=== PATIENT | male | born 1940 | race Caucasian/White ===

== ENCOUNTER 2018-02-09 17:56 | Emergency (ER) | payer MEDICARE, OTHER ==
[2018-02-09] MEDS ORDERED: NORMAL SALINE 1000 ML 500 ML IV PRN (18:22)
--- NOTE | 2018-02-09 18:25 | ER Document Report ---
ED Medical Screen (RME) - General TRAVEL OUTSIDE OF THE [place] IN LAST 30 DAYS: No <TANYA GONZALEZ - Last Filed: 02/09/18 18:23> - General Mode of Arrival: Ambulatory Information source: Patient - HPI Onset: Other <MONICA MCBRIDE - Last Filed: 02/09/18 21:44> - General Chief Complaint: Contusion Stated Complaint: ABNORMAL LABS Time Seen by Provider: 02/09/18 18:03 Notes: 77 years old male with no significant past medical history, had a fall a few days ago and sustained a bruise over the left flank. For that he was taking ibuprofen and aspirin on and off. Then noted petechial rash over the lower extremity. Had a nosebleed, and also mucosal bleed from the gums Seen by her primary care physician, at [facility] [place]. They called to inform that it platelets was 0. No other lab reports available. He is not taking any other medications. Did not have any fever chills or other constitutional symptoms. No signs of any other infection. Denies any abdominal pain. (TANYA GONZALEZ) - Related Data Allergies/Adverse Reactions: No Known Allergies Allergy (Unverified 02/09/18 18:01) - Vital signs Vitals: Temp Pulse Resp BP Pulse Ox 97.8 F 97 14 169/95 H 98 02/09/18 18:02 02/09/18 18:02 02/09/18 18:02 02/09/18 18:02 02/09/18 18:02 Course - Laboratory Result Diagrams: 02/09/18 18:31 02/09/18 18:31 <MONICA MCBRIDE - Last Filed: 02/09/18 21:44> - Vital Signs Vital signs: Temp Pulse Resp BP Pulse Ox 97.8 F 97 14 169/95 H 98 02/09/18 18:02 02/09/18 18:02 02/09/18 18:02 02/09/18 18:02 02/09/18 18:02 - Laboratory Laboratory results interpreted by me: 02/09/18 18:31 WBC 10.6 H RBC 3.76 L Hgb 11.9 L Hct 34.3 L RDW 14.4 H Plt Count < 3 L*
[2018-02-09 18:50] LABS: ABSOLUTE BASOPHILS # (AUTO) 0.1 10^3/uL (0.0-0.2); ABSOLUTE EOSINOPHILS # (AUTO) 0.3 10^3/uL (0.0-0.6); ABSOLUTE LYMPHOCYTES (AUTO) 1.9 10^3/uL (0.5-4.7); ABSOLUTE NEUT (AUTO) 7.3 10^3/uL (1.7-8.2); EOSINOPHILS % (AUTO) 2.4 % (0-6); HEMATOCRIT 34.3 % (37.9-51.0); HEMOGLOBIN 11.9 g/dL (13.5-17.0); LYMPHOCYTES % (AUTO) 18.2 % (13-45); MEAN CORPUSCULAR HEMOGLOBIN 31.6 pg (27.0-33.4); MEAN CORPUSCULAR HGB CONC 34.7 g/dL (32.0-36.0); MEAN CORPUSCULAR VOLUME 91 fl (80-97); MONOCYTES % (AUTO) 9.6 % (3-13); RED BLOOD COUNT 3.76 10^6/uL (4.35-5.55); RED CELL DISTRIBUTION WIDTH 14.4 % (11.5-14.0); SEGMENTED NEUTROPHILS % (AUTO) 68.8 % (42-78); TOTAL CELLS COUNTED % (AUTO) 100 %; WHITE BLOOD COUNT 10.6 10^3/uL (4.0-10.5)
--- NOTE | 2018-02-09 18:56 | RADIOLOGY REPORT (SQ) ---
EXAM DESCRIPTION: CT HEAD WITHOUT COMPLETED DATE/TIME: 02/09/2018 6:46 pm REASON FOR STUDY: Ecchymosis, platelet 0, rule out bleed COMPARISON: None. TECHNIQUE: Axial images acquired through the brain without intravenous contrast. Images reviewed wi th bone, brain and subdural windows. Additional sagittal and coronal reconstructions were generated. Images stored on PACS. All CT scanners at this facility use dose modulation, iterative reconstruction, and/or weight based d osing when appropriate to reduce radiation dose to as low as reasonably achievable (ALARA). [facility]: Dose Right [facility]: CareDose [facility]: Dose Right [facility]: Teradose 4D [facility]: Smart [employer] RADIATION DOSE: CT Rad equipment meets quality standard of care and radiation dose reduction techniq ues were employed. CTDIvol: 53.2 mGy. DLP: 1017 mGy-cm. mGy. LIMITATIONS: None. FINDINGS: VENTRICLES: Normal size and contour. CEREBRUM: No masses. No hemorrhage. No midline shift. No evidence for acute infarction. Normal gra y/white matter differentiation. No areas of low density in the white matter. CEREBELLUM: No masses. No hemorrhage. No alteration of density. No evidence for acute infarction. EXTRAAXIAL SPACES: No fluid collections. No masses. ORBITS AND GLOBE: No intra- or extraconal masses. Normal contour of globe without masses. CALVARIUM: No fracture. PARANASAL SINUSES: Small amount of fluid in the left maxillary sinus. SOFT TISSUES: No mass or hematoma. OTHER: No other significant finding. IMPRESSION: NORMAL BRAIN CT WITHOUT CONTRAST. EVIDENCE OF ACUTE STROKE: NO. COMMENT: Quality ID # 436: Final reports with documentation of one or more dose reduction techniques (e.g., Automated exposure control, adjustment of the mA and/or kV according to patient size, use of iterative reconstruction technique) TECHNICAL DOCUMENTATION: JOB ID: [id number] [employer]- All Rights Reserved Reading location - IP/workstation name: [email or web address]
[2018-02-09 19:00] LABS: ALANINE AMINOTRANSFERASE 43 U/L (21-72); ALBUMIN 4.2 g/dL (3.5-5.0); ALKALINE PHOSPHATASE 56 U/L (38-126); ANION GAP 15 (5-19); ASPARTATE AMINO TRANSFERASE 48 U/L (17-59); BILIRUBIN,DIRECT 0.3 mg/dL (0.0-0.4); BILIRUBIN,TOTAL 1.1 mg/dL (0.2-1.3); BLOOD UREA NITROGEN 18 mg/dL (7-20); CARBON DIOXIDE 23 mmol/L (22-30); CHLORIDE 102 mmol/L (98-107); GLUCOSE 103 mg/dL (75-110); POTASSIUM 3.8 mmol/L (3.6-5.0); SODIUM 139.6 mmol/L (137-145); TOTAL PROTEIN 7.4 g/dL (6.3-8.2)
--- NOTE | 2018-02-09 19:01 | RADIOLOGY REPORT (SQ) ---
EXAM DESCRIPTION: CT ABD/PELVIS NO ORAL OR IV COMPLETED DATE/TIME: 02/09/2018 6:46 pm REASON FOR STUDY: Fall with injury to the abdomen COMPARISON: None. TECHNIQUE: CT scan of the abdomen and pelvis performed without intravenous or oral contrast. Images reviewed with lung, soft tissue, and bone windows. Reconstructed coronal and sagittal MPR images revi ewed. All images stored on PACS. All CT scanners at this facility use dose modulation, iterative reconstruction, and/or weight based d osing when appropriate to reduce radiation dose to as low as reasonably achievable (ALARA). [facility]: Dose Right [facility]: CareDose [facility]: Dose Right [facility]: Teradose 4D [facility]: Smart [employer] RADIATION DOSE: CT Rad equipment meets quality standard of care and radiation dose reduction techniq ues were employed. CTDIvol: 14.4 mGy. DLP: 761 mGy-cm.mGy. LIMITATIONS: None. FINDINGS: LOWER CHEST: No significant findings. No nodules or infiltrates. NON-CONTRASTED LIVER, SPLEEN, ADRENALS: Evaluation limited by lack of IV contrast. 1.5 x 3 cm cyst i n the left lobe of the liver. No identified significant masses. PANCREAS: No masses. No peripancreatic inflammatory changes. GALLBLADDER: No identified stones by CT criteria. No inflammatory changes to suggest cholecystitis. RIGHT KIDNEY AND URETER: 10 cm cyst in the upper pole. No suspicious masses. Assessment limited by l ack of IV contrast. No significant calcifications. No hydronephrosis or hydroureter. LEFT KIDNEY AND URETER: No suspicious masses. Assessment limited by lack of IV contrast. No signifi cant calcifications. No hydronephrosis or hydroureter. AORTA AND RETROPERITONEUM: No aneurysm. No retroperitoneal masses or adenopathy. Inferior vena cava filter. BOWEL AND PERITONEAL CAVITY: No obvious masses or inflammatory changes. No free fluid. APPENDIX: Normal. PELVIS, BLADDER, AND ABDOMINAL WALL:No abnormal masses. No free fluid. Bladder normal. BONES: Degenerative changes in the spine. Left hip prosthesis. Degenerative changes in the right hi p. No acute findings. OTHER: Faint streaky densities in the subcutaneous fatty tissues of the left flank. IMPRESSION: 1. FAINT STREAKY DENSITIES IN THE SUBCUTANEOUS FATTY TISSUES OF THE LEFT FLANK CONSISTENT WITH CONTUS ION/BRUISING. NO FOCAL FLUID COLLECTION. NO OTHER ACUTE TRAUMATIC FINDINGS. 2. LARGE CORTICAL CYST IN THE RIGHT KIDNEY. 3. HEPATIC CYSTS. 4. NO OTHER SIGNIFICANT OR ACUTE PROCESS IN THE ABDOMEN OR PELVIS. COMMENT: Quality ID # [id number]: Final reports with documentation of one or more dose reduction techniques (e.g., Automated exposure control, adjustment of the mA and/or kV according to patient size, use of iterative reconstruction technique) TECHNICAL DOCUMENTATION: JOB ID: [id number] [employer]- All Rights Reserved Reading location - IP/workstation name: [email or web address]
[2018-02-09 19:02] LABS: INTERNATIONAL RATION (INR) 1.01; PROTHROMBIN TIME 13.8 SEC (11.4-15.4)
[2018-02-09] MEDS ORDERED: NORMAL SALINE 250 ML IV PRN ×2 (19:12)
[2018-02-09 19:14] LABS: PLATELET COUNT < 3 10^3/uL (150-450)
[2018-02-09] MEDS ORDERED: METHYLPREDNISOLONE INJ 500 MG VIAL IV ONE (20:29)
--- NOTE | 2018-02-09 21:53 | ER Document Report ---
ED General - General Chief Complaint: Contusion Stated Complaint: ABNORMAL LABS Time Seen by Provider: 02/09/18 18:03 Mode of Arrival: Ambulatory TRAVEL OUTSIDE OF THE [place] IN LAST 30 DAYS: No - HPI Patient complains to provider of: thrombocytopenia Onset: Other - Presents for evaluation of incidental bruising over the last several days which he presented his primary care physician earlier today, was noted to have a platelet count of 0, was sent to the emergency room for further evaluation he notes that he has had nosebleed over the last 2 days as well as a couple of dark stools. He also slipped and hit his side and does have a bruise there. He has never had issues with bruising in the class, bleeding in the past , other symptoms. Does not have any headache chest pain shortness of breath diarrhea constipation or dysuria. - Related Data Allergies/Adverse Reactions: No Known Allergies Allergy (Unverified 02/09/18 18:01) Past Medical History - General Information source: Patient - Social History Smoking Status: Never Smoker Chew tobacco use (# tins/day): No Drug Abuse: None Family History: None Patient has suicidal ideation: No Patient has homicidal ideation: No Renal/ Medical History: Denies: Hx Peritoneal Dialysis Review of Systems - Review of Systems -: Yes All other systems reviewed and negative Physical Exam - Vital signs Vitals: Temp Pulse Resp BP Pulse Ox 97.8 F 97 14 169/95 H 98 02/09/18 18:02 02/09/18 18:02 02/09/18 18:02 02/09/18 18:02 02/09/18 18:02 - General General appearance: Appears well In distress: None - HEENT Head: Normocephalic Eyes: Normal Conjunctiva: Normal Cornea: Normal - Respiratory Respiratory status: No respiratory distress Chest status: Nontender Breath sounds: Normal Chest palpation: Normal - Cardiovascular Rhythm: Regular Heart sounds: Normal auscultation Murmur: No - Abdominal Inspection: Other - Large ecchymosis extending along the left flank - Back Back: Normal - Extremities General upper extremity: Normal inspection General lower extremity: Other - The bilateral lower extremities just demonstrate petechia from the level of the knee down to the ankle - Neurological Neuro grossly intact: Yes Cognition: Normal Orientation: AAOx4 Course - Re-evaluation Re-evalutation: 08/07/18 21:54 This gentleman presented for evaluation of an incidental finding of platelets of 0. Evaluation patient does not have any active bleeding, he does have stigmata of bruising petechiae no other symptoms. Redrew CBC BMP. Patient received a head CT through triage is negative. He is neurologically intact and overall well appearing. We will plan for administration of steroids, methylprednisolone 500 IV. We will plan for initiation of IVIG and platelets neither which are in-house at this time will order them. 02/10/18 03:59 Discussed case with [facility], [facility] X capability for plasma exchange pheresis at this time they defer accepting this patient as a result. Have contacted [facility] for this patient, hematology clinician agrees further transfer this patient at this time, concerned this patient has ITP as such have transfused platelets here administered methylprednisolone do not have IVIG available at this time. Patient remains hemodynamically stable at this time, neurologically intact and well-appearing. He is received 3 units of platelets. He will be transported via in hospital. His negative CT of the head, negative CT of the abdomen and pelvis for any large hematoma or internal bleeding. At the time of transport this patient was hemodynamically stable and remained well-appearing. - Vital Signs Vital signs: Temp Pulse Resp BP Pulse Ox 97.9 F 74 18 144/84 H 97 02/10/18 03:00 02/10/18 03:30 02/10/18 03:30 02/10/18 03:26 02/10/18 03:30 - Laboratory Result Diagrams: 02/09/18 18:31 02/09/18 18:31 Laboratory results interpreted by me: 02/09/18 18:31 WBC 10.6 H RBC 3.76 L Hgb 11.9 L Hct 34.3 L RDW 14.4 H Plt Count < 3 L* Critical Care Note - Critical Care Note Total time excluding time spent on procedures (mins): 45 - This patient presented for platelets of 0, initiated transfusion, reassessed multiple times for response to transfusion and medication, coordinated transport and facilitated transport. Patient was at risk for deterioration critical bleeding and worsening. Discharge - Discharge Clinical Impression: Acute ITP Condition: Serious Disposition: Critical Access Hospital Referrals: ANA CRISTINA HERNANDEZ PA [Primary Care Provider] - Follow up as needed
[2018-02-10 05:22] VITALS: BP 134/87
[2018-02-10 17:50] LABS: PATH REVIEW PATHOLOGIST REVIEWED
== END 2018-02-10 04:34 | disposition short-term general hospital (02) ==
LOC: ER 17:56
DX: D69.3 Immune thrombocytopenic purpura (principal); D69.6 Thrombocytopenia, unspecified
CPT/HCPCS: 99291; 96360; 96361; 86900; 86901; 36415; 36430; 86850; 85025; 85610; 80053; 70450; 74176; P9035; J2920; J7030